=== PATIENT | female | born 1955 | race African-American/Black ===

== ENCOUNTER 2017-04-14 08:43 | Outpatient (CLI) | payer OTHER ==
[2013-01-16 14:18] VITALS: BP 200/108
[~2017-04-14 08:43] MED LIST: HEPARIN SODIUM 500 UNIT/5 ML DISP.SYRIN IV ONE; NORMAL SALINE 1,000 ML IV.SOLN IV ONE; SALINE FLUSH 10 ML DISP.SYRIN IVF ONE
[2017-04-14] MEDS ORDERED: 0.9 % SODIUM CHLORIDE 1,000 ML IV PRN (08:54)
[2017-04-14] MEDS ORDERED: PROMETHAZINE HCL IV PRN ×2 (09:40)
[2017-04-14] MEDS ORDERED: WATER IV PRN ×2 (09:40)
[2017-04-14] MEDS ORDERED: DEXTROSE 5% IV PRN ×2 (09:40)
== END 2017-04-14 09:00 ==
LOC: INF 08:43
PROVIDERS: ATTEND Internal Medicine Hematology & Oncology
DX: E86.0 Dehydration (principal); C16.2 Malignant neoplasm of body of stomach
CPT/HCPCS: 96360; 96361; J1642; J7030

== ENCOUNTER 2017-04-19 08:05 | Outpatient (CLI) | payer OTHER ==
[2013-01-16 14:18] VITALS: BP 200/108
[2017-04-19] MEDS ORDERED: HEPARIN SODIUM 500 UNIT/5 ML DISP.SYRIN IV ONE (11:00)
[2017-04-19] MEDS ORDERED: SALINE FLUSH 10 ML DISP.SYRIN IVF ONE ×2 (11:00→11:02)
[2017-04-19] MEDS ORDERED: NORMAL SALINE 1,000 ML IV.SOLN IV ONE (11:00)
== END 2017-04-19 08:06 ==
LOC: INF 08:05
PROVIDERS: ATTEND Internal Medicine Hematology & Oncology
DX: E86.0 Dehydration (principal); C16.2 Malignant neoplasm of body of stomach
CPT/HCPCS: 96360; 96361; J1642; J7030

== ENCOUNTER 2017-04-19 20:47 | Emergency (ER) | payer OTHER ==
--- NOTE | 2017-04-19 21:52 | ED Physician Documentation ---
General Adult - HISTORIAN Historian: patient - HPI Stated Complaint: Right swollen breast s/p infusion Chief Complaint: General Adult (swollen breast p infusion) Additional Information: Patient has been diagnosed with gastric cancer and has had a port placed. Has been undergoing chemotherapy. Today had NS infusion for dehydration. After infusion started to notice some swelling and mild tenderness to the right anterior chest area. While having the infusion did notice some pressure feeling to the anterior chest area. Comes in for recheck. Onset: hours Timing: still present - ROS CONST: no problems, fever (low grade related to chemo). denies: chills GI/: none - PAST HX Past History: other (gastric cancer) Other History: none Immunizations: referred to PCP Allergies/Adverse Reactions: Allergies Allergy/AdvReac Type Severity Reaction Status Date / Time No Known Allergies Allergy Verified 04/19/17 21:26 Home Medications: Ambulatory Orders Medication Instructions Recorded Hydroxyzine Pamoate [Vistaril] 25 mg PO PRN PRN 04/19/17 LORazepam [Ativan] 0.5 - 1 mg PO Q4 PRN 04/19/17 Promethazine HCl [Phenergan] 25 mg PO Q6 PRN 04/19/17 Zolpidem Tartrate [Ambien] 5 mg PO HS 04/19/17 - SOCIAL HX Smoking History: quit less than 1 year Alcohol Use: none Drug Use: none - FAMILY HX Family History: No - VITAL SIGNS Vital Signs: Vital Signs Temp Pulse Resp BP Pulse Ox 100.6 F H 93 H 16 174/114 99 04/19/17 20:50 04/19/17 20:50 04/19/17 20:50 04/19/17 20:50 04/19/17 20:50 - REVIEWED ASSESSMENTS Nursing Assessment Reviewed: Yes Vitals Reviewed: Yes General Adult Physical Exam - PHYSICAL EXAM GENERAL APPEARANCE: mild distress EENT: ENT inspection normal, pharynx normal, no signs of dehydration NECK: normal inspection, thyroid normal, supple. No: lymphadenopathy RESPIRATORY: no resp distress, chest non-tender, breath sounds normal. No: wheezes, rales, rhonchi CVS: reg rate & rhythm, heart sounds normal, equal pulses, no murmur SKIN: warm/dry, other (mild to moderate swelling to the right breast chest wall. No ecchymosis noted, no hematoma palpable) NEURO: oriented X3, cognition normal Discharge Clincal Impression: Soft tissue swelling of chest wall Referrals: Primary Doctor,Tami [Primary Care Provider] - 2 Days Additional Instructions: Wear a sports bra for some compression to the area. Let your oncologist know about the problem you had today. I would hope that the swelling should improve over the next several days. Condition: Stable Disposition: 01 HOME, SELF-CARE Decision to Admit: NO Date of Decison to Admit: 04/19/17 Decision Time: 21:58
[2017-04-19 22:12] VITALS: BP 164/99
== END 2017-04-19 22:10 | disposition home or self-care (01) ==
LOC: ED 20:47
DX: R22.2 Localized swelling, mass and lump, trunk (principal)
CPT/HCPCS: 99283